=== PATIENT | female | born 1960 | race Caucasian/White ===

== ENCOUNTER 2016-10-15 10:23 | Emergency (ER) | payer MEDICAID ==
[2016-10-15] MEDS ORDERED: MORPHINE 2 MG/ML SYRINGE IVP STA (11:12)
[2016-10-15] MEDS ORDERED: ONDANSETRON 4 MG/2 ML VIAL IVP STA (11:12)
[2016-10-15] MEDS ORDERED: SODIUM CHLORIDE 0.9% 1,000 ML IV ONE (11:12)
[2016-10-15] MEDS ORDERED: MORPHINE 2 MG/ML SYRINGE ONE (11:27)
[2016-10-15] MEDS ORDERED: ONDANSETRON 4 MG/2 ML VIAL ONE (11:27)
[2016-10-15] MEDS ORDERED: IOPAMIDOL-300 100 ML VIAL IVP ONE (12:00)
== END 2016-10-15 13:38 | disposition home or self-care (01) ==
DX: R10.84 Generalized abdominal pain (principal); K57.30 Diverticulosis of large intestine without perforation or abscess without bleeding; J44.9 Chronic obstructive pulmonary disease, unspecified; Z90.2 Acquired absence of lung [part of]; Z99.81 Dependence on supplemental oxygen; F17.200 Nicotine dependence, unspecified, uncomplicated
CPT/HCPCS: 36415; 74177; 80053; 81003; 83690; 85025; 96361; 96374; 96375; 99283; 99284; Q9967

== ENCOUNTER 2016-10-19 10:32 | Outpatient (CLI) | payer MEDICAID | END 2016-10-19 10:33 | disposition home or self-care (01) | DX: R07.89 Other chest pain (principal); R10.84 Generalized abdominal pain ==

== ENCOUNTER 2016-11-19 10:35 | Outpatient (CLI) | payer MEDICAID | END 2016-11-19 10:36 | disposition home or self-care (01) | DX: N64.4 Mastodynia (principal); Z80.3 Family history of malignant neoplasm of breast ==

== ENCOUNTER 2017-02-08 10:32 | Outpatient (CLI) | payer MEDICAID, MEDICARE ==
[2017-02-08 17:52] LABS: BASOPHILS # (AUTO) 0.1 10^3/uL (0.0-0.1); BASOPHILS % (AUTO) 0.7 %; EOSINOPHILS # (AUTO) 0.1 10^3/uL (0.0-0.7); EOSINOPHILS % (AUTO) 1.1 %; HCT - HEMATOCRIT 44.4 % (37.0-47.0); HGB - HEMOGLOBIN 14.9 g/dL (12.0-16.0); LYMPHOCYTES # (AUTO) 2.7 10^3/uL (1.5-3.5); MEAN CORPUSCULAR HEMOGLOBIN 33.8 pg (27.0-31.0); MEAN CORPUSCULAR HGB CONC 33.5 g/dL (32.0-36.0); MEAN CORPUSCULAR VOLUME 100.8 fL (81.0-99.0); MEAN PLATELET VOLUME 7.6 fL (7.9-10.8); MONOCYTES # (AUTO) 0.5 10^3/uL (0.0-1.0); MONOCYTES % (AUTO) 6.1 %; NEUTROPHILS # (AUTO) 5.6 10^3/uL (1.5-6.6); NEUTROPHILS % (AUTO) 62.1 %; NUCLEATED RED BLOOD CELLS AUTO 0.1 /100WBC; RED CELL DISTRIBUTION WIDTH 15.8 % (12.0-15.0)
[2017-02-08 18:08] LABS: ALBUMIN/GLOBULIN RATIO 1.7 (1.0-2.2); BILIRUBIN,TOTAL 0.4 mg/dL (0.2-1.0); CALCIUM 9.4 mg/dL (8.5-10.3); CREATININE 0.6 mg/dL (0.4-1.0); POTASSIUM 4.1 mmol/L (3.5-5.0); TOTAL PROTEIN 6.9 g/dL (6.7-8.2)
== END 2017-02-08 10:33 | disposition home or self-care (01) ==
LOC: LAB.N 10:32
PROVIDERS: ATTEND Nurse Practitioner Family
DX: Z85.118 Personal history of other malignant neoplasm of bronchus and lung (principal)
CPT/HCPCS: 36415; 80053; 83880; 84443; 85025; 85379

== ENCOUNTER 2017-07-25 10:45 | Outpatient (CLI) | payer MEDICARE, MEDICAID ==
--- NOTE | 2017-07-25 17:45 | XRAY Report ---
FRONTAL CHEST WITH LEFT RIBS: 07/25/2017 CLINICAL INDICATION: Left rib pain. Frontal view of the chest and oblique views of the left ribs were obtained, with markers at the site of maximal tenderness. The cardiac silhouette is within normal limits. The lungs are clear. No effusion or pneumothorax is present. No displaced rib fracture is identified. IMPRESSION: NORMAL CHEST AND LEFT RIBS. NO EVIDENCE OF DISPLACED RIB FRACTURE. JOB #: [id number] EXT JOB #:[id number]
== END 2017-07-25 10:46 | disposition home or self-care (01) ==
LOC: DI.S 10:45
PROVIDERS: ATTEND Nurse Practitioner Family
DX: R07.81 Pleurodynia (principal)

== ENCOUNTER 2017-11-06 14:37 | Outpatient (CLI) | payer MEDICARE, MEDICAID ==
--- NOTE | 2017-11-06 17:08 | XRAY Report ---
RIGHT KNEE: 11/06/2017 No comparison. INDICATION: Right knee pain. TECHNIQUE: Four views. FINDINGS: There is a tiny enthesophyte of the superior patella. No effusion. Normal alignment. No evidence of acute fracture. No degenerative changes otherwise. IMPRESSION: MINIMAL DEGENERATIVE CHANGE OF THE PATELLA. OTHERWISE, NEGATIVE. TD: 11/06/2017 17:07 [facility]
== END 2017-11-06 14:38 | disposition home or self-care (01) ==
LOC: DI.S 14:37
PROVIDERS: ATTEND Nurse Practitioner Family
DX: M17.11 Unilateral primary osteoarthritis, right knee (principal)

== ENCOUNTER 2017-12-11 10:53 | Outpatient (CLI) | payer MEDICARE, MEDICAID | END 2017-12-11 10:54 | disposition home or self-care (01) | LOC: DI.S 10:53 | PROVIDERS: ATTEND Nurse Practitioner Family | DX: Z53.9 Procedure and treatment not carried out, unspecified reason (principal) ==

== ENCOUNTER 2017-12-12 10:02 | Outpatient (CLI) | payer MEDICARE, MEDICAID ==
[2017-12-12 18:06] LABS: BASOPHILS % (AUTO) 0.7 %; EOSINOPHILS % (AUTO) 0.6 %; HGB - HEMOGLOBIN 13.9 g/dL (12.0-16.0); LYMPHOCYTES # (AUTO) 2.1 10^3/uL (1.5-3.5); LYMPHOCYTES % (AUTO) 33.9 %; MEAN PLATELET VOLUME 7.6 fL (7.9-10.8); MONOCYTES # (AUTO) 0.4 10^3/uL (0.0-1.0); MONOCYTES % (AUTO) 6.3 %; NEUTROPHILS # (AUTO) 3.6 10^3/uL (1.5-6.6); NEUTROPHILS % (AUTO) 58.5 %; PLT - PLATELET COUNT 220 10^3/uL (130-450); RED BLOOD COUNT 4.21 10^6/uL (4.20-5.40); RED CELL DISTRIBUTION WIDTH 14.5 % (12.0-15.0); WHITE BLOOD COUNT 6.1 x10^3/uL (4.8-10.8)
[2017-12-12 18:12] LABS: ALBUMIN 4.2 g/dL (3.2-5.5); ALBUMIN/GLOBULIN RATIO 1.6 (1.0-2.2); ALKALINE PHOSPHATASE 56 IU/L (42-121); ALT ALANINE AMINOTRANSFERASE 17 IU/L (10-60); AST ASPARTATE AMINOTRANSFERASE 15 IU/L (10-42); BILIRUBIN,TOTAL 0.5 mg/dL (0.2-1.0); BUN - BLOOD UREA NITROGEN 13 mg/dL (6-20); CARBON DIOXIDE - CO2 26 mmol/L (21-32); CHLORIDE 103 mmol/L (101-111); CHOLESTEROL 214 mg/dL; CREATININE 0.6 mg/dL (0.4-1.0); GFR - MDRD 103 (>89); GLUCOSE 111 mg/dL (70-100); HDL CHOLESTEROL 50 mg/dL; LDL CHOLESTEROL,CALCULATED 139 mg/dL; SODIUM 137 mmol/L (135-145); TOTAL PROTEIN 6.9 g/dL (6.7-8.2); VLDL CHOLESTEROL 25 mg/dL
[2017-12-12 18:13] LABS: CHOL/HDL RATIO 4.3 (<4.4); LDL/HDL RATIO 2.8 (<4.4)
== END 2017-12-12 10:03 | disposition home or self-care (01) ==
LOC: LAB.F 10:02
PROVIDERS: ATTEND Nurse Practitioner Family
DX: Z13.6 Encounter for screening for cardiovascular disorders (principal); Z13.29 Encounter for screening for other suspected endocrine disorder; Z85.118 Personal history of other malignant neoplasm of bronchus and lung
CPT/HCPCS: 36415; 80053; 80061; 83721; 84443; 85025

== ENCOUNTER 2017-12-16 14:23 | Outpatient (CLI) | payer MEDICARE, MEDICAID ==
[2017-12-16 19:53] LABS: HB2 TOTAL 14.3 g/dL; HEMOGLOBIN A1C 0.57 g/dL; HEMOGLOBIN A1C % 5.8 % (4.6-6.2)
== END 2017-12-16 14:24 | disposition home or self-care (01) ==
LOC: LAB.F 14:23
PROVIDERS: ATTEND Nurse Practitioner Family
DX: R73.01 Impaired fasting glucose (principal)
CPT/HCPCS: 36415; 83036

== ENCOUNTER 2018-02-12 09:49 | Outpatient (CLI) | payer MEDICARE, MEDICAID ==
--- NOTE | 2018-02-12 10:50 | Mammography Report ---
Procedure Date: 02/12/2018 Accession Number: [id number] / [id number] Procedure: RAE - Diagnostic Dig Bilat CPT Code: FULL RESULT: EXAM: Diagnostic Dig Bilat DATE: 02/12/2018 10:38 AM CLINICAL HISTORY: Diffuse right breast pain TECHNIQUE: Bilateral digital CC, MLO, and true lateral projections. COMPARISON: 11/19/2016 FINDINGS: There are scattered fibroglandular densities. No dominant mass, architectural distortion, suspicious microcalcifications, skin thickening or other abnormality. No interval change compared to the prior study. IMPRESSION: Negative examination. RECOMMENDATION: Suggest return to routine screening in 12 months. BIRADS CATEGORY 1: Negative. STANDARD QUALIFYING STATEMENTS: 1. This examination was reviewed with the aid of Computer-Aided Detection (CAD). 2. A negative or benign imaging report should not delay biopsy if clinically suspicious findings are present. Consider surgical consultation if warrented. More than 5% of cancers are not identified by imaging. 3. Dense breasts may obscure an underlying neoplasm.
== END 2018-02-12 09:50 | disposition home or self-care (01) ==
LOC: DI 09:49
PROVIDERS: ATTEND Nurse Practitioner Family
DX: N64.4 Mastodynia (principal)
CPT/HCPCS: 77066

== ENCOUNTER 2018-04-01 09:45 | Outpatient (CLI) | payer MEDICARE, MEDICAID | END 2018-04-01 09:46 | disposition home or self-care (01) | LOC: RT.S 09:45 | PROVIDERS: ATTEND Nurse Practitioner Family | DX: R07.89 Other chest pain (principal) | CPT/HCPCS: 93005 ==

== ENCOUNTER 2018-04-17 08:38 | Outpatient (CLI) | payer MEDICARE, MEDICAID ==
[2018-04-17] MEDS ORDERED: REGADENOSON 0.4 MG/5 ML SYRINGE IVP ONE (10:12)
[2018-04-17] MEDS ORDERED: AMINOPHYLLINE 250 MG/10 ML VIAL IV ONE (10:50)
[2018-04-17] MEDS: REGADENOSON 0.4 MG/5 ML SYRINGE IVP ONE ×2 (10:55→13:34)
--- NOTE | 2018-04-17 18:48 | Nuclear Medicine Report ---
Procedure Date: 04/17/2018 Accession Number: [id number] / [id number] Procedure: NM - Myocardial Perfusion STR/RST CPT Code: FULL RESULT: EXAM: NUCLEAR MEDICINE MYOCARDIAL PERFUSION STRESS AND REST EXAM EXAM DATE: 04/17/2018 02:06 PM. CLINICAL HISTORY: CHEST PAIN, COPD. COMPARISON: None. TECHNIQUE: Patient given 10 mCi technetium 99m sestamibi IV for the rest portion of the study. Non-gated cardiac SPECT scintigraphy performed with multiplanar reformats. After appropriate delay, exercise attempted on a treadmill protocol with 2 minutes exercise time, but did not achieve target heart rate. Next, patient given 0.4 mg lexiscan for pharmacologic stress. After this, patient given 43.7 mCi technetium 99m sestamibi IV. Cardiac gated SPECT scintigraphy performed with wall motion analysis, left ventricular ejection fraction estimation, and multiplanar reformats. FINDINGS: There is a moderate-sized focus of moderately decreased activity in the anterior apical wall from apex to mid ventricle stress with partial normalization on rest. Wall motion appears uniform. Left ventricular ejection fraction estimated at 82%. IMPRESSION: 1. 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 2. Left ventricular ejection fraction estimated at 82%. RADIA
--- NOTE | 2018-04-18 12:23 | CARDIAC PROCEDURE NOTE ---
DATE OF SERVICE: 04/17/2018 Physician: Aleah Hess MD INDICATIONS FOR TEST: Atypical chest pain, COPD. CARDIAC RISK FACTORS: Tobacco smoker, family history with father with an LA at the age of 56. PROCEDURE: The patient underwent a pharmaceutical stress test using Lexiscan, after signing informed consent. The patient had wheezing at baseline, no shortness of breath or chest pain. The patient developed brief shortness of breath with Lexiscan, had no chest pain, had worsening of her wheezing. She was given aminophylline 50 mg IV for reversal of symptoms. Resting EKG: Normal sinus rhythm, borderline first-degree block, left atrial enlargement, LAFB, poor R-wave progression. Peak EKG: No new ST or T-wave changes. Resting heart rate 100, peak heart rate 115. Resting blood pressure 116/86, peak blood pressure 122/78. IMPRESSION 1. No ischemic changes by EKG criteria, but this was a pharmaceutical stress test. 2. Abnormal resting EKG. 3. Shortness of breath and wheezing, aminophylline required for reversal. 4. Nuclear images reported separately. cc: ERI Kothari TD: 04/18/2018 11:57 MTDJason
== END 2018-04-17 08:39 | disposition home or self-care (01) ==
LOC: DI 08:38
PROVIDERS: ATTEND Nurse Practitioner Family
DX: I21.09 ST elevation (STEMI) myocardial infarction involving other coronary artery of anterior wall (principal); J44.9 Chronic obstructive pulmonary disease, unspecified
CPT/HCPCS: 78452; 93017; A9500; J2785

== ENCOUNTER 2018-05-08 15:22 | Emergency (ER) | payer MEDICARE, MEDICAID ==
[2018-05-08 17:14] LABS: BASOPHILS % (AUTO) 0.4 %; EOSINOPHILS % (AUTO) 0.6 %; HGB - HEMOGLOBIN 15.8 g/dL (12.0-16.0); LYMPHOCYTES # (AUTO) 2.8 10^3/uL (1.5-3.5); LYMPHOCYTES % (AUTO) 36.7 %; MEAN CORPUSCULAR HEMOGLOBIN 34.6 pg (27.0-31.0); MEAN CORPUSCULAR HGB CONC 35.1 g/dL (32.0-36.0); MEAN CORPUSCULAR VOLUME 98.4 fL (81.0-99.0); MEAN PLATELET VOLUME 7.3 fL (7.9-10.8); MONOCYTES # (AUTO) 0.5 10^3/uL (0.0-1.0); MONOCYTES % (AUTO) 7.1 %; NEUTROPHILS # (AUTO) 4.2 10^3/uL (1.5-6.6); NEUTROPHILS % (AUTO) 55.2 %; PLT - PLATELET COUNT 258 10^3/uL (130-450); RED BLOOD COUNT 4.57 10^6/uL (4.20-5.40); RED CELL DISTRIBUTION WIDTH 13.8 % (12.0-15.0); WHITE BLOOD COUNT 7.5 x10^3/uL (4.8-10.8)
[2018-05-08 17:25] LABS: ALBUMIN 4.5 g/dL (3.2-5.5); ALBUMIN/GLOBULIN RATIO 1.6 (1.0-2.2); BILIRUBIN,TOTAL 0.6 mg/dL (0.2-1.0); CALCIUM 9.1 mg/dL (8.5-10.3); CREATININE 0.5 mg/dL (0.4-1.0); TOTAL PROTEIN 7.3 g/dL (6.7-8.2)
--- NOTE | 2018-05-08 17:59 | XRAY Report ---
Reason: cough chest pain Procedure Date: 05/08/2018 Accession Number: [id number] / [id number] Procedure: XR - Chest 2 View X-Ray CPT Code: 78073 FULL RESULT: EXAM: CHEST RADIOGRAPHY EXAM DATE: 05/08/2018 05:16 PM. CLINICAL HISTORY: Cough, chest and right arm pain which began yesterday. COMPARISON: Ribs with PA chest left 07/25/2017 10:58 AM. TECHNIQUE: 2 views. FINDINGS: Lungs/Pleura: No focal opacities evident. No pleural effusion. No pneumothorax. Normal volumes. Mediastinum: Heart and mediastinal contours are unremarkable. Other: None. IMPRESSION: Normal 2-view chest radiography. RADIA
[2018-05-08] MEDS ORDERED: predniSONE 20 MG TABLET PO STA (18:44)
[2018-05-08] MEDS ORDERED: ASPIRIN CHEW 81 MG TABLET PO STA (18:44)
--- NOTE | 2018-05-08 18:47 | ED Physician Documentation ---
PD HPI CHEST PAIN - Stated complaint Stated Complaint: SOA/CHEST PRESSURE/R ARM-NK PX - Chief complaint Chief Complaint: Resp - History obtained from History obtained from: Patient - History of Present Illness Timing - onset: Other (This is a 58-year-old woman with history of COPD. She had a stress test a few weeks ago which had shown prior ischemic infarct. But there was nothing reversible on the stress test. For the last 2 days she has had right shoulder pain that is worse with motion and constant. It is not worse with exertion. She was worried that this might be an anginal equivalent. She also complains of right hip and left ankle pain. She is more short of breath with than normal with a wheezy cough. 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 : None HEENT: None Psych: None Musculoskeletal: None Derm: None - Past Surgical History Past Surgical History: Yes General: Cholecystectomy Cardiovascular: Lobectomy - Present Medications Home Medications: Ambulatory Orders Medication Instructions Recorded Confirmed Ipratropium/Albuterol Inhaler 1 puffs INH QID PRN 07/16/13 03/18/18 [Combivent Inhaler] RX: Albuterol 2.5 mg INH Q4H PRN 01/11/15 03/18/18 RX: Omeprazole 20 mg PO TID 09/11/16 03/18/18 RX: Sucralfate 1 gm PO ACHS #120 tablet 10/15/16 03/18/18 RX: Cyclobenzaprine [Flexeril] 10 mg PO TID PRN 09/10/17 03/18/18 RX: Gabapentin 300 mg PO DAILY PM 09/10/17 03/18/18 raNITIdine [Zantac] 150 mg PO DAILY 09/10/17 03/18/18 Varenicline Tartrate [Chantix] 0.5 mg PO 03/18/18 RX: predniSONE [Prednisone] 60 mg PO DAILY 5 Days #15 tablet 05/08/18 - Allergies Allergies/Adverse Reactions: Allergies Allergy/AdvReac Type Severity Reaction Status Date / Time No Known Drug Allergies Allergy Verified 05/08/18 15:39 - Social History Does the pt smoke?: Yes Smoking Status: Current every day smoker Does the pt drink ETOH?: No Does the pt have substance abuse?: Yes - Immunizations Immunizations are current?: Yes - POLST Patient has POLST: No PD ED PE NORMAL - Vitals Vital signs reviewed: Yes - General General: Alert and oriented X 3, No acute distress - HEENT HEENT: PERRL, EOMI - Neck Neck: Supple, no meningeal sign, No bony TTP - Cardiac Cardiac: RRR, No murmur - Respiratory Respiratory: Other (Wheezy and rhonchorous throughout) - Abdomen Abdomen: Soft, Non tender - Back Back: No CVA TTP, No spinal TTP - Extremities Extremities: No edema, No calf tenderness / cord - Neuro Neuro: Alert and oriented X 3, Normal speech Results - Vitals Vitals: Vital Signs - 24 hr 05/08/18 05/08/18 05/08/18 15:35 18:32 19:32 Temperature 36.5 C 36.8 C 36.8 C Heart Rate 102 H 98 108 H Respiratory 22 16 16 Rate Blood Pressure 128/78 147/94 H 147/81 H O2 Saturation 96 99 95 Oxygen O2 Source Room air - EKG (time done) 1532 Rate: Rate (enter#) (103) Rhythm: NSR [place]: Normal Intervals: Normal IA QRS: Normal Ischemia: Q waves (inferior) Computer interpretation: Agree with computer - Labs Labs: Laboratory Tests 05/08/18 05/08/18 05/08/18 17:05 17:05 17:05 WBC 7.5 RBC 4.57 Hgb 15.8 Hct 45.0 MCV 98.4 MCH 34.6 H MCHC 35.1 RDW 13.8 Plt Count 258 MPV 7.3 L Neut # (Auto) 4.2 Lymph # (Auto) 2.8 [place] # (Auto) 0.5 Eos # (Auto) 0.0 Baso # (Auto) 0.0 Absolute Nucleated RBC 0.00 Nucleated RBC % 0.1 Sodium 136 Potassium 3.7 Chloride 102 Carbon Dioxide 24 Anion Gap 10.0 BUN 9 Creatinine 0.5 Estimated GFR (MDRD) 126 Glucose 100 Calcium 9.1 Total Bilirubin 0.6 AST 24 ALT 27 Alkaline Phosphatase 66 Troponin I < 0.04 Total Protein 7.3 Albumin 4.5 Globulin 2.8 Albumin/Globulin Ratio 1.6 Lipase 24 PD MEDICAL DECISION MAKING - ED course ED course: She presents with a recent "positive" stress test but it showed a previous infarct without reversible areas of ischemia. Her 2 days of constant very atypical pain rule her out with a single troponin. She otherwise seems to be dealing with an increase in COPD symptoms which are treated with prednisone and she is advised to quit smoking. - Sepsis Event Vital Signs: Vital Signs - 24 hr 05/08/18 05/08/18 05/08/18 15:35 18:32 19:32 Temperature 36.5 C 36.8 C 36.8 C Heart Rate 102 H 98 108 H Respiratory 22 16 16 Rate Blood Pressure 128/78 147/94 H 147/81 H O2 Saturation 96 99 95 Oxygen O2 Source Room air Departure - Departure Disposition: 01 Home, Self Care Clinical Impression: Right shoulder pain, COPD exacerbation Condition: Good Record reviewed to determine appropriate education?: Yes Instructions: ED COPD Flare, ED Chest Pain Atypical Unkn Cause, ED Smoking Cessation Prescriptions: RX: predniSONE [Prednisone] 60 mg PO DAILY 5 Days #15 tablet Comments: Your diagnostics today suggest that the constant pain you had over the last 2 days or not your heart. That said you should be taking aspirin, a baby aspirin every day and follow-up with a scrap stripper hand for evaluation after the positive stress test as scheduled. Return for new or worsening symptoms. Discharge Date/Time: 05/08/18 19:38
[2018-05-08 19:32] VITALS: BP 147/81
== END 2018-05-08 19:38 | disposition home or self-care (01) ==
LOC: ED 15:22
DX: J44.1 Chronic obstructive pulmonary disease with (acute) exacerbation (principal); M25.511 Pain in right shoulder; F17.200 Nicotine dependence, unspecified, uncomplicated
CPT/HCPCS: 36415; 71046; 80053; 83690; 84484; 85025; 93005; 99283; A9270; J7512

== ENCOUNTER 2018-11-07 14:30 | Emergency (ER) | payer MEDICARE, MEDICAID ==
--- NOTE | 2018-11-07 15:36 | XRAY Report ---
Reason: SOA Procedure Date: 11/07/2018 Accession Number: [id number] / [id number] Procedure: XR - Chest 2 View X-Ray CPT Code: 78503 FULL RESULT: EXAM: CHEST RADIOGRAPHY EXAM DATE: 11/07/2018 03:06 PM. CLINICAL HISTORY: SOA. COMPARISON: CHEST 2 VIEW 05/08/2018 5:28 PM. TECHNIQUE: 2 views. FINDINGS: Lungs/Pleura: No localized infiltrate, consolidation, effusion, or pneumothorax. Mediastinum: Heart and mediastinal contours are unremarkable. Upper lobe vessels not distended. Other: Degenerative changes. IMPRESSION: No acute disease. RADIA
--- NOTE | 2018-11-07 16:59 | ED Physician Documentation ---
PD HPI URI - Stated complaint Stated Complaint: CONGESTION/WHEEZING/LOW O2/RAPID HR - Chief complaint Chief Complaint: Resp - History obtained from History obtained from: Patient - History of Present Illness Timing - onset: How many days ago (has had few days of cough and fevers, with worsening wheezing. History of COPD. Has home oxygen at night and home nebulizer.) Timing duration: Days (few) Timing details: Gradual onset, Still present Associated symptoms: Fever, Sore throat, Productive cough, Dyspnea. No: Hemoptysis, Chest pain Contributing factors: COPD / asthma. 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 : None HEENT: None Psych: None Musculoskeletal: None Derm: None - Past Surgical History Past Surgical History: Yes General: Cholecystectomy Cardiovascular: Lobectomy - Present Medications Home Medications: Ambulatory Orders Medication Instructions Recorded Confirmed Ipratropium/Albuterol Inhaler 1 puffs INH QID PRN 07/16/13 03/18/18 [Combivent Inhaler] Albuterol 2.5 mg INH Q4H PRN 01/11/15 03/18/18 Omeprazole 20 mg PO TID 09/11/16 03/18/18 Sucralfate 1 gm PO ACHS #120 tablet 10/15/16 03/18/18 Cyclobenzaprine [Flexeril] 10 mg PO TID PRN 09/10/17 03/18/18 Gabapentin 300 mg PO DAILY PM 09/10/17 03/18/18 raNITIdine [Zantac] 150 mg PO DAILY 09/10/17 03/18/18 Varenicline Tartrate [Chantix] 0.5 mg PO 03/18/18 predniSONE [Prednisone] 60 mg PO DAILY 5 Days #15 tablet 05/08/18 Benzonatate [Tessalon Perle] 100 - 200 mg PO TID PRN #30 capsule 11/07/18 Cyclobenzaprine [Flexeril] 10 mg PO TID PRN #20 tablet 11/07/18 Dexamethasone [Decadron] 4 mg PO DAILY #7 tablet 11/07/18 Doxycycline Hyclate 100 mg PO BID #20 capsule 11/07/18 Ipratropium [Atrovent] 0.5 mg INH Q6H #30 neb 11/07/18 - Allergies Allergies/Adverse Reactions: Allergies Allergy/AdvReac Type Severity Reaction Status Date / Time No Known Drug Allergies Allergy Verified 11/07/18 14:49 - Social History Does the pt smoke?: Yes Smoking Status: Current every day smoker Does the pt drink ETOH?: No Does the pt have substance abuse?: Yes - Immunizations Immunizations are current?: Yes - POLST Patient has POLST: No PD ED PE NORMAL - Vitals Vital signs reviewed: Yes - General General: Alert and oriented X 3, No acute distress, Well developed/nourished - HEENT HEENT: Ears normal, Pharynx benign - Neck Neck: Supple, no meningeal sign, No adenopathy, No JVD - Cardiac Cardiac: No murmur. No: RRR (regular but tachycardic) - Respiratory Respiratory: No: Clear bilaterally (no coarse sounds; has diffuse wheezing with some prlonged exp phase. Sats are okay. Able to talk sentences. ) - Abdomen Abdomen: Soft, Non tender Results - Vitals Vitals: Vital Signs - 24 hr 11/07/18 11/07/18 16:52 18:10 Temperature 36.0 C L Heart Rate 98 106 H Respiratory 20 20 Rate Blood Pressure 121/90 H 144/81 H O2 Saturation 95 94 Oxygen O2 Source Room air - Rads (name of study) chest xray Radiology: Prelim report reviewed, EMP read contemporaneously (no infiltrates. ) PD MEDICAL DECISION MAKING - ED course Complexity details: re-evaluated patient (feeling improved with duoneb. Will give steroids and abx, in lieu of her COPD where abx can be helpful even if think URI. ), considered differential, d/w patient Departure - Departure Disposition: 01 Home, Self Care Clinical Impression: Acute exacerbation of COPD with asthma Upper respiratory infection Qualifiers: URI type: unspecified URI Qualified Code(s): J06.9 - Acute upper respiratory infection, unspecified Record reviewed to determine appropriate education?: Yes Instructions: ED Bronchitis Asthmatic, ED COPD Flare Follow-Up: Pauly Menjivar ARNP [Primary Care Provider] - Prescriptions: Benzonatate [Tessalon Perle] 100 - 200 mg PO TID PRN #30 capsule PRN Reason: Cough Cyclobenzaprine [Flexeril] 10 mg PO TID PRN #20 tablet PRN Reason: Spasms Dexamethasone [Decadron] 4 mg PO DAILY #7 tablet Doxycycline Hyclate 100 mg PO BID #20 capsule Ipratropium [Atrovent] 0.5 mg INH Q6H #30 neb Comments: Use your albuterol inhaler or nebulizer at home 4 times a day regularly. You can add ipratropium to your nebulizer 4 times a day for the next week or so as well to also help with your wheezing. Decadron steroid daily first a week for inflammation of the airways. Tessalon if needed for cough. Continue your Flexeril muscle relaxant for spasms. The basic exacerbation is likely from a viral illness though there is often improving with an antibiotic in the setting of COPD as well. Recheck if not improving over the next few days. Return if worsening. Discharge Date/Time: 11/07/18 18:12
[2018-11-07] MEDS ORDERED: CYCLOBENZAPRINE 10 MG TABLET PO STA (17:10)
[2018-11-07] MEDS ORDERED: BENZONATATE 100 MG CAPSULE PO STA (17:10)
[2018-11-07] MEDS ORDERED: DOXYCYCLINE 100 MG TABLET PO STA (17:10)
[2018-11-07] MEDS ORDERED: IPRATROPIUM/ALBUTEROL 3 ML NEB INH STA (17:10)
[2018-11-07] MEDS ORDERED: DEXAMETHASONE 10 MG/ML VIAL PO STA (17:10)
[2018-11-07 18:11] VITALS: BP 144/81
== END 2018-11-07 18:12 | disposition home or self-care (01) ==
LOC: ED 14:30
DX: J44.1 Chronic obstructive pulmonary disease with (acute) exacerbation (principal); J06.9 Acute upper respiratory infection, unspecified; Z90.2 Acquired absence of lung [part of]; F17.200 Nicotine dependence, unspecified, uncomplicated
CPT/HCPCS: 71046; 94640; 99282; 99283; A9270

== ENCOUNTER 2019-01-11 08:29 | Outpatient (CLI) | payer MEDICARE, MEDICAID ==
--- NOTE | 2019-01-11 12:22 | Ultrasound Report ---
Reason: LOWER EXTREMITY EDEMA, LEFT Procedure Date: 01/11/2019 Accession Number: [id number] / [id number] Procedure: US - Duplex Lwr Ext Arterial Bilat CPT Code: FULL RESULT: EXAM: Bilateral Lower Extremity Arterial Doppler Ultrasound EXAM DATE: 01/11/2019 09:23 AM. CLINICAL HISTORY: Left lower extremity edema. History of hypertension, smoking, and hyperlipidemia. COMPARISON: None. TECHNIQUE: Real-time sonographic vascular imaging was performed by the manufacturing clerk, utilizing color-flow, Doppler flow, and spectral analysis. Multiple technology sales representative static images were saved for review. FINDINGS: Right Leg: FINANCE ANALYST: PSV 77 cm/sec. Triphasic waveform. PSFA: PSV 103 cm/sec. Triphasic waveform. MSFA: PSV 74 cm/sec. Triphasic waveform. DSFA: PSV 61 cm/sec. Triphasic waveform. PFA: PSV 60 cm/sec. Triphasic waveform. POP: PSV 48 cm/sec. Triphasic waveform. DOROTHEA: PSV 43 cm/sec. Biphasic waveform. BLEACH TESTER: PSV 31 cm/sec. Biphasic waveform. PER: PSV 39 cm/sec. Biphasic waveform. DPA: PSV 38 cm/sec. Triphasic waveform. Left Leg: FINANCE ANALYST: PSV 82 cm/sec. Triphasic waveform. PSFA: PSV 85 cm/sec. Triphasic waveform. MSFA: PSV 80 cm/sec. Triphasic waveform. DSFA: PSV 51 cm/sec. Triphasic waveform. PFA: PSV 51 cm/sec. Biphasic waveform. POP: PSV 36 cm/sec. Triphasic waveform. DOROTHEA: PSV 35 cm/sec. Biphasic waveform. BLEACH TESTER: PSV 31 cm/sec. Triphasic waveform. PER: PSV 32 cm/sec. Biphasic waveform. DPA: PSV 28 cm/sec. Triphasic waveform. IMPRESSION: No Doppler evidence of significant (greater than 50%) arterial stenosis in either lower extremity. RADIA
== END 2019-01-11 08:30 | disposition home or self-care (01) ==
LOC: DI 08:29
PROVIDERS: ATTEND Registered Nurse
DX: R60.0 Localized edema (principal)
CPT/HCPCS: 93925

== ENCOUNTER 2019-07-20 07:00 | Outpatient (CLI) | payer MEDICARE, MEDICAID | END 2019-07-20 23:59 | disposition home or self-care (01) | LOC: LAB.R 07:00 | PROVIDERS: ATTEND Registered Nurse | DX: J02.9 Acute pharyngitis, unspecified (principal) | CPT/HCPCS: 87070 ==

== ENCOUNTER 2020-02-04 12:37 | Outpatient (CLI) | payer MEDICARE, MEDICAID | END 2020-02-04 12:38 | disposition critical access hospital (66) | LOC: EMS 12:37 | PROVIDERS: ATTEND Surgery | DX: R06.02 Shortness of breath (principal); R07.89 Other chest pain; R05 Cough; R11.0 Nausea; R19.7 Diarrhea, unspecified | CPT/HCPCS: A0425; A0429 ==

== ENCOUNTER 2020-02-04 13:06 | Emergency (ER) | payer MEDICARE, MEDICAID ==
[2020-02-04] MEDS ORDERED: ALBUTEROL 1 PUFF INH STA ×2 (13:21→13:54)
--- NOTE | 2020-02-04 13:26 | ED Physician Documentation ---
History of Present Illness - Stated complaint Stated Complaint: CP/POSS C+ - Chief complaint Chief Complaint: Resp - History obtained from History obtained from: Patient, EMS - History of Present Illness Timing: Prior to arrival, How many days ago (3) - Additonal information Additional information: 59-year-old female presents to the emergency department with chief complaint of 3 days left-sided chest pain and productive cough with associated chills at home. Patient reports that about 8 years ago she was diagnosed with left upper lobe lung cancer and underwent a partial lung resection. The point in her chest where the chest tubes were placed after surgery has become increasingly more tender. Patient reports a history of emphysema for which she uses oxygen mostly at night. Patient reports that her baseline sats are typically 92 to 95%. Over the last 3 days she has felt increasingly dyspneic however she has not used her home nebulizer. She is also had some associated diarrhea. She went to the [facility] today and they advised her to come to the emergency department for further evaluation. Patient states that since her diagnosis of lung cancer she has had multiple bouts of pneumonia. She is followed by the [facility] clinic now being seen about once every year.Over the last 2 to 3 months patient reports that she has been practicing social distancing. She only goes to the grocery store. Her roommate has stage IV lung cancer and she has been helping care for him at home. Patient continues to smoke tobacco.She denies any history of hypertension or diabetes. MEDS: flexeril, combivent, albuterol nebulizer, gabapentin Review of Systems Constitutional: reports: Fever, Chills, Fatigue, Sweats. denies: Myalgias Ears: denies: Loss of hearing, Ear pain Nose: denies: Rhinorrhea / runny nose, Congestion Throat: denies: Dental pain / toothache Cardiac: reports: Chest pain / pressure. denies: Palpitations, Pedal edema, Calf pain Respiratory: reports: Dyspnea, Cough, Wheezing GI: reports: Diarrhea. denies: Abdominal Pain, Abdominal Swelling, Nausea, Vomiting, Constipation : denies: Dysuria, Frequency Skin: denies: Rash, Lesions Musculoskeletal: reports: Back pain (chronic). denies: Neck pain, Joint pain, Extremity swelling Neurologic: denies: Generalized weakness, Focal weakness, Syncope, Confused, Altered mental status PD PAST MEDICAL HISTORY - Past Medical History Cardiovascular: None Respiratory: COPD, Pneumonia, Other Endocrine/Autoimmune: None GI: None POSITION CLASSIFIER: None : None HEENT: None Psych: None Musculoskeletal: None Derm: None - Past Surgical History Past Surgical History: Yes General: Cholecystectomy Cardiovascular: Lobectomy - Present Medications Home Medications: Ambulatory Orders Medication Instructions Recorded Confirmed Ipratropium/Albuterol Inhaler 1 puffs INH QID PRN 07/16/13 03/17/19 [Combivent Inhaler] Omeprazole 20 mg PO DAILY 09/11/16 03/17/19 Gabapentin 300 mg PO DAILY PM 09/10/17 03/17/19 Cyclobenzaprine [Flexeril] 10 mg PO TID PRN #20 tablet 11/07/18 03/17/19 Ipratropium [Atrovent] 0.5 mg INH Q6H #30 neb 11/07/18 03/17/19 Albuterol Sulf [Ventolin Hfa 2 puffs Q4H 02/04/20 02/04/20 Inhaler] Aspirin 81 mg PO DAILY 02/04/20 02/04/20 Doxycycline Hyclate 100 mg PO BID #20 capsule 02/04/20 Ipratropium/Albuterol [Combivent 2 puffs Q4H 02/04/20 02/04/20 Respimat] Meloxicam 15 mg PO DAILY 02/04/20 02/04/20 Nitroglycerin 0.4 mg SL PRN 02/04/20 02/04/20 predniSONE [Prednisone] 40 mg PO DAILY #10 tablet 02/04/20 - Allergies Allergies/Adverse Reactions: Allergies Allergy/AdvReac Type Severity Reaction Status Date / Time No Known Drug Allergies Allergy Verified 02/04/20 13:20 - Social History Does the pt smoke?: Yes Smoking Status: Current every day smoker Does the pt drink ETOH?: No Does the pt have substance abuse?: Yes - Immunizations Immunizations are current?: Yes - POLST Patient has POLST: No PD ED PE EXPANDED - General General: Alert, No acute distress, Well developed/nourished - HEENT HEENT: Atraumatic, PERRL, EOMI - Neck Neck: Supple w/out meningeal sx, No tenderness - Cardiac Cardiac: Regular Rate, Radial strong equal - Respiratory Respiratory: Labored, Wheezing (generalized diffuse expiratory wheeze), Absent Breath Sounds (left upper lung) - Abdomen Abdomen: Normal Bowel sounds. No: Distended, Tender to palpation - Back Back: Other (tenderness to palpation left lateral lower rib margins at the noted scar where chest tube previously inserted) - Derm Derm: Normal color, Warm and dry. No: Jaundiced, Diaphoretic, Cyanotic, Rash - Neuro Neuro: Alert and Oriented X 3, PERRL - GCS Eye Opening: Spontaneous Motor: Obeys Commands Verbal: Oriented Total: 15 Results - Vitals Vitals: Vital Signs - 24 hr 02/04/20 02/04/20 02/04/20 13:07 13:38 13:42 Temperature 36.6 C 37.3 C Heart Rate 108 H 106 H Respiratory 17 15 Rate Blood Pressure 123/86 H O2 Saturation 96 02/04/20 13:59 Temperature Heart Rate 111 H Respiratory 20 Rate Blood Pressure O2 Saturation Oxygen O2 Source Room air - EKG (time done) 1329 Rate: Rate (enter#) (113) Rhythm: Sinus tachycardia [place]: Other Intervals: Normal IN, QRS normal QRS: Normal Ischemia: Normal ST segments Compare to prior EKG: Changed from prior EKG Computer interpretation: Agree with computer (P wave inversion V1,V2 new from 2018 EKG; possible new inferior old infarct) - Labs Labs: Laboratory Tests 02/04/20 02/04/20 02/04/20 13:20 13:20 13:20 WBC 9.2 RBC 4.47 Hgb 15.2 Hct 45.7 MCV 102.2 H MCH 34.0 H MCHC 33.3 RDW 13.2 Plt Count 212 MPV 8.9 Neut # (Auto) 5.6 Lymph # (Auto) 2.8 [place] # (Auto) 0.6 Eos # (Auto) 0.1 Baso # (Auto) 0.0 Absolute Nucleated RBC 0.00 Nucleated RBC % 0.0 Sodium 138 Potassium 4.1 Chloride 107 Carbon Dioxide 23 Anion Gap 8.0 BUN 12 Creatinine 0.6 Estimated GFR (MDRD) 102 Glucose 160 H Lactic Acid 1.2 Calcium 8.9 Total Bilirubin 0.4 AST 21 ALT 28 Alkaline Phosphatase 76 Troponin I High Sens Total Protein 7.2 Albumin 4.4 Globulin 2.8 Albumin/Globulin Ratio 1.6 Lipase 24 Urine Color Urine Clarity Urine pH Ur Specific [place] Urine Protein Urine Glucose (UA) Urine Ketones Urine Occult Blood Urine Nitrite Urine Bilirubin Urine Urobilinogen Ur Leukocyte Esterase Urine RBC Urine WBC Ur Squamous Epith Cells Urine Bacteria Ur Microscopic Review Urine Culture Comments 02/04/20 02/04/20 13:20 13:30 WBC RBC Hgb Hct MCV MCH MCHC RDW Plt Count MPV Neut # (Auto) Lymph # (Auto) [place] # (Auto) Eos # (Auto) Baso # (Auto) Absolute Nucleated RBC Nucleated RBC % Sodium Potassium Chloride Carbon Dioxide Anion Gap BUN Creatinine Estimated GFR (MDRD) Glucose Lactic Acid Calcium Total Bilirubin AST ALT Alkaline Phosphatase Troponin I High Sens 3.8 Total Protein Albumin Globulin Albumin/Globulin Ratio Lipase Urine Color DARK YELLOW Urine Clarity HAZY Urine pH 6.0 Ur Specific [place] >=1.030 H Urine Protein TRACE Urine Glucose (UA) NEGATIVE Urine Ketones NEGATIVE Urine Occult Blood NEGATIVE Urine Nitrite NEGATIVE Urine Bilirubin NEGATIVE Urine Urobilinogen 0.2 (NORMAL) Ur Leukocyte Esterase NEGATIVE Urine RBC 0-5 Urine WBC 0-3 Ur Squamous Epith Cells MOD Squamous H Urine Bacteria Few Ur Microscopic Review INDICATED Urine Culture Comments NOT INDICATED - Rads (name of study) CXR Radiology: Final report received (Finding is concerning for developing right perihilar and infrahilar infiltrate.) PD MEDICAL DECISION MAKING - ED course Complexity details: reviewed results, re-evaluated patient, considered differential, d/w patient ED course: 59-year-old female presented to the emergency department with chief complaint of left-sided chest pain and dyspnea with subjective fever and chills and newly productive cough. She has a past medical history that includes COPD for which she is on nocturnal oxygen. - COVID 19 screening is pending. - Chest x-ray reveals a subtle finding of a right perihilar and infrahilar infiltrate. Her CURB 65 risk scor eis low for 30 day mortality. - Reassuringly through the course of this ED visit she has not been hypoxic with saturations at her baseline of 92 to 95%. Her initial wheeze and dyspnea nearly fully abated following albuterol MDI. - Will plan to Discharge with doxycycline as treatment for pneumonia as well as a short burst of steroids for COPD exacerbation. - Labs reviewed in full. She has no leukocytosis. Her troponin is negative. The rest of the serum chemistry is without any worrisome findings. - Her ECG is nonischemic today. - We spent time discussing the emergent return precautions. I do not feel that further imaging or admission is warranted at this time patient feels stable and desires to return home. Departure - Departure Disposition: 01 Home, Self Care Clinical Impression: COPD with exacerbation CAP (community acquired pneumonia) Qualifiers: Laterality: right Lung location: unspecified part of lung Qualified Code(s): J18.9 - Pneumonia, unspecified organism Condition: Stable Record reviewed to determine appropriate education?: Yes Instructions: COPD Dc, ED Pneumonia Adult Follow-Up: Pauly Menjivar ARNP [Primary Care Provider] - Prescriptions: Doxycycline Hyclate 100 mg PO BID #20 capsule predniSONE [Prednisone] 40 mg PO DAILY #10 tablet Comments: Yolande I hop eyou feel better soon. It looks like you have a pneumonia developing in your right lung. I am also concerned that you are having a COPD exacerbation. Would start you on a 10-day course of antibiotics and have you take some steroids. If at any point at home you feel that your breathing is worsening your cough is not improving or your oxygen sats at home are less than 92% then please return immediately to the emergency department.
[2020-02-04 13:33] LABS: BASOPHILS % (AUTO) 0.3 %; EOSINOPHILS # (AUTO) 0.1 10^3/uL (0.0-0.7); EOSINOPHILS % (AUTO) 0.9 %; HGB - HEMOGLOBIN 15.2 g/dL (12.0-16.0); LYMPHOCYTES # (AUTO) 2.8 10^3/uL (1.5-3.5); LYMPHOCYTES % (AUTO) 30.6 %; MEAN CORPUSCULAR HGB CONC 33.3 g/dL (32.0-36.0); MEAN CORPUSCULAR VOLUME 102.2 fL (81.0-99.0); MEAN PLATELET VOLUME 8.9 fL (7.9-10.8); MONOCYTES # (AUTO) 0.6 10^3/uL (0.0-1.0); MONOCYTES % (AUTO) 6.9 %; NEUTROPHILS # (AUTO) 5.6 10^3/uL (1.5-6.6); NEUTROPHILS % (AUTO) 60.5 %; PLT - PLATELET COUNT 212 10^3/uL (130-450); RED BLOOD COUNT 4.47 10^6/uL (4.20-5.40); RED CELL DISTRIBUTION WIDTH 13.2 % (12.0-15.0); WHITE BLOOD COUNT 9.2 x10^3/uL (4.8-10.8)
[2020-02-04 13:48] LABS: ALBUMIN 4.4 g/dL (3.2-5.5); ALBUMIN/GLOBULIN RATIO 1.6 (1.0-2.2); BILIRUBIN,TOTAL 0.4 mg/dL (0.2-1.0); CALCIUM 8.9 mg/dL (8.5-10.3); CREATININE 0.6 mg/dL (0.4-1.0); TOTAL PROTEIN 7.2 g/dL (6.7-8.2)
[2020-02-04 13:49] LABS: BILIRUBIN,URINE NEGATIVE (NEGATIVE); GLUCOSE, URINE (UA) NEGATIVE (NEGATIVE); KETONES,URINE (UA) NEGATIVE (NEGATIVE); LEUKOCYTE ESTERASE, URINE NEGATIVE (NEGATIVE); NITRITE,URINE NEGATIVE (NEGATIVE); OCCULT BLOOD,URINE NEGATIVE (NEGATIVE); PROTEIN,URINE TRACE mg/dL (NEGATIVE); UROBILINOGEN,URINE 0.2 (NORMAL) E.U./dL (NORMAL)
[2020-02-04 13:51] LABS: CLARITY,URINE HAZY (CLEAR)
[2020-02-04 14:00] LABS: BACTERIA,URINE Few /HPF (None Seen); RBC,URINE 0-5 /HPF (0-5); SQUAMOUS EPITHELIAL CELL,UR MOD Squamous (<= Few)
--- NOTE | 2020-02-04 14:12 | XRAY Report ---
Reason: chest pain Procedure Date: 02/04/2020 Accession Number: [id number] / [id number] Procedure: XR - Chest 1 View X-Ray CPT Code: 70021 Final Report FULL RESULT: PROCEDURE: Chest 1 View X-Ray INDICATIONS: chest pain TECHNIQUE: One view of the chest was acquired. COMPARISON: CT of chest dated 03/16/2019 FINDINGS: Surgical changes and devices: None. Lungs and pleura: No pleural effusions or pneumothorax. Ill-defined airspace opacity in right perihilar and infrahilar region is seen concerning for developing right-sided infiltrate. Left lung is clear. Mediastinum: Mediastinal contours appear normal. Heart size is normal. Bones and chest wall: No suspicious bony lesions. Overlying soft tissues appear unremarkable. IMPRESSION: Finding is concerning for developing right perihilar and infrahilar infiltrate. Reviewed by: Jorden Mccann MD on 02/04/2020 2:11 PM PDT Approved by: Jorden Mccann MD on 02/04/2020 2:11 PM PDT Station ID: [id number]
[2020-02-04 14:45] VITALS: BP 123/84
== END 2020-02-04 15:12 | disposition home or self-care (01) ==
LOC: EDUNIT# → ED 13:06
DX: J44.1 Chronic obstructive pulmonary disease with (acute) exacerbation (principal); J18.9 Pneumonia, unspecified organism; Z20.828 Contact with and (suspected) exposure to other viral communicable diseases; R19.7 Diarrhea, unspecified; R00.0 Tachycardia, unspecified; Z85.118 Personal history of other malignant neoplasm of bronchus and lung; F17.200 Nicotine dependence, unspecified, uncomplicated
CPT/HCPCS: 36415; 71045; 80053; 81001; 83605; 83690; 84484; 85025; 93005; 94640; 94664; 99284; U0004; 81003; 81599; 87086

== ENCOUNTER 2020-08-23 10:40 | Outpatient (CLI) | payer MEDICARE, MEDICAID ==
--- NOTE | 2020-08-24 09:16 | Mammography Report ---
BILATERAL DIGITAL SCREENING MAMMOGRAM 3D/2D: 08/23/2020 CLINICAL: Routine screening. Comparison is made to exams dated: 02/12/2018 mammogram, 11/19/2016 mammogram, [facility]. There are scattered fibroglandular elements in both breasts. No significant masses, calcifications, or other findings are seen in either breast. There has been no significant interval change. IMPRESSION: NEGATIVE There is no mammographic evidence of malignancy. A 1 year screening mammogram is recommended. This exam was interpreted at Station ID: [id number]. NOTE: For mammograms, a report in lay terms will be sent to the patient. Approximately 15% of breast malignancies will not be visualized mammographically. In the management of a palpable breast mass, a negative mammogram must not discourage biopsy of a clinically suspicious lesion. Electronically Signed By: Pete Garrido M.D. ddp/penrad:08/23/2020 14:11:48 ACR BI-RADS Category 1: Negative 3341F PARENCHYMAL PATTERN: (A) - The breast(s) demonstrate(s) scattered fibroglandular densities. BI-RADS CATEGORY: (1) - 1 RECOMMENDATION: (ANNUAL) - Recommend routine annual screening mammography. [id number] 1 year screening LATERALITY: (B)
== END 2020-08-23 10:41 | disposition home or self-care (01) ==
LOC: DI 10:40
DX: Z12.31 Encounter for screening mammogram for malignant neoplasm of breast (principal)

== ENCOUNTER 2020-09-30 18:10 | Outpatient (CLI) | payer MEDICARE, MEDICAID ==
--- NOTE | 2020-09-30 11:02 | XRAY Report ---
PROCEDURE: Knee 4 View LT INDICATIONS: CHONDROMALACIA PATELLA TECHNIQUE: 4 views of the left knee(s) were acquired. COMPARISON: None. FINDINGS: Bones: No fractures or dislocations. No suspicious bony lesions. Mild tricompartmental periarticul ar osteophyte formation. Soft tissues: No joint effusion. No suspicious soft tissue calcifications. IMPRESSION: Osteoarthritis. No acute fracture. No osseous lesion. If symptoms and/or clinical suspic ion for pathology continue, further assessment with repeat plain films, or advanced imaging (e.g., CT , MRI, or bone scan) is recommended for further assessment. Reviewed by: Rebekah Armstrong MD on 09/30/2020 11:01 AM PST Approved by: Rebekah Armstrong MD on 09/30/2020 11:01 AM PST Station ID: [id number]
== END 2020-09-30 23:59 | disposition home or self-care (01) ==
LOC: DI.N 18:10
PROVIDERS: ATTEND Physician Assistant
DX: M22.40 Chondromalacia patellae, unspecified knee (principal); M17.12 Unilateral primary osteoarthritis, left knee

== ENCOUNTER 2021-02-20 11:44 | Outpatient (CLI) | payer MEDICARE, MEDICAID ==
--- NOTE | 2021-02-20 13:10 | XRAY Report ---
PROCEDURE: Chest 2 View X-Ray INDICATIONS: THORACIC PAIN TECHNIQUE: 2 view(s) of the chest. COMPARISON: None. FINDINGS: Surgical changes and devices: None. Lungs and pleura: No pleural effusions or pneumothorax. Lungs are clear. Mediastinum: Mediastinal contours are normal. Heart size is normal. Bones and chest wall: No suspicious bony abnormalities. Soft tissues appear unremarkable. IMPRESSION: Normal for age, source of current symptoms is not seen. Reviewed by: Juanjo Otto MD on 02/20/2021 1:08 PM PDT Approved by: Juanjo Otto MD on 02/20/2021 1:08 PM PDT Station ID: [id number]
--- NOTE | 2021-02-20 14:51 | XRAY Report ---
PROCEDURE: Abdomen 2 View X-Ray INDICATIONS: ABDOMINAL PAIN, LUQ TECHNIQUE: 2 views of the abdomen were acquired. COMPARISON: None. FINDINGS: Surgical changes and devices: Right upper quadrant surgical clips.. Bowel: No pneumoperitoneum. The bowel gas pattern is normal. Soft tissues: No masses; visualized solid organ contours appear normal in size. No suspicious abdom inal calcifications. Bones: No suspicious bony abnormalities. IMPRESSION: No specific evidence of bowel obstruction although continued surveillance with abdominal radiographs could be performed if the patient's symptoms do not improve. Reviewed by: Akash Blanchard MD on 02/20/2021 2:50 PM PDT Approved by: Akash Blanchard MD on 02/20/2021 2:50 PM PDT Station ID: [id number]
[2021-02-20 15:54] LABS: BASOPHILS % (AUTO) 0.5 %; EOSINOPHILS % (AUTO) 0.5 %; HCT - HEMATOCRIT 46.6 % (37.0-47.0); HGB - HEMOGLOBIN 15.3 g/dL (12.0-16.0); LYMPHOCYTES # (AUTO) 2.8 10^3/uL (1.5-3.5); LYMPHOCYTES % (AUTO) 38.1 %; MEAN CORPUSCULAR HEMOGLOBIN 33.4 pg (27.0-31.0); MEAN CORPUSCULAR HGB CONC 32.8 g/dL (32.0-36.0); MEAN CORPUSCULAR VOLUME 101.7 fL (81.0-99.0); MEAN PLATELET VOLUME 9.5 fL (7.9-10.8); MONOCYTES # (AUTO) 0.5 10^3/uL (0.0-1.0); MONOCYTES % (AUTO) 7.1 %; NEUTROPHILS # (AUTO) 3.9 10^3/uL (1.5-6.6); NEUTROPHILS % (AUTO) 53.5 %; PLT - PLATELET COUNT 276 10^3/uL (130-450); RED BLOOD COUNT 4.58 10^6/uL (4.20-5.40); RED CELL DISTRIBUTION WIDTH 13.6 % (12.0-15.0); WHITE BLOOD COUNT 7.3 x10^3/uL (4.8-10.8)
[2021-02-20 16:33] LABS: ALBUMIN 4.4 g/dL (3.2-5.5); ALBUMIN/GLOBULIN RATIO 1.5 (1.0-2.2); ALKALINE PHOSPHATASE 73 IU/L (42-121); ALT ALANINE AMINOTRANSFERASE 19 IU/L (10-60); AST ASPARTATE AMINOTRANSFERASE 15 IU/L (10-42); BILIRUBIN,TOTAL 0.6 mg/dL (0.2-1.0); BUN - BLOOD UREA NITROGEN 15 mg/dL (6-20); CALCIUM 9.1 mg/dL (8.5-10.3); CARBON DIOXIDE - CO2 21 mmol/L (21-32); CHLORIDE 100 mmol/L (101-111); CHOL/HDL RATIO 5.1 (<4.4); CHOLESTEROL 220 mg/dL; CREATININE 0.6 mg/dL (0.4-1.0); GFR - MDRD 102 (>89); GLUCOSE 180 mg/dL (70-100); HDL CHOLESTEROL 43 mg/dL; LDL CHOLESTEROL,CALCULATED 121 mg/dL; LDL/HDL RATIO 2.8 (<4.4); POTASSIUM 3.4 mmol/L (3.5-5.0); SODIUM 135 mmol/L (135-145); TOTAL PROTEIN 7.4 g/dL (6.7-8.2); TRIGLYCERIDES 281 mg/dL; VLDL CHOLESTEROL 56 mg/dL
[2021-02-20 16:49] LABS: CRP - C-REACTIVE PROTEIN < 1.0 mg/dL (0-1.0)
== END 2021-02-20 11:45 | disposition home or self-care (01) ==
LOC: DI.S 11:44
PROVIDERS: ATTEND Registered Nurse
DX: R10.12 Left upper quadrant pain (principal); M54.6 Pain in thoracic spine; K22.70 Barrett's esophagus without dysplasia; I25.9 Chronic ischemic heart disease, unspecified; J44.9 Chronic obstructive pulmonary disease, unspecified; F17.210 Nicotine dependence, cigarettes, uncomplicated
CPT/HCPCS: 36415; 80053; 80061; 83721; 84443; 85025; 86140

== ENCOUNTER 2021-06-30 07:00 | Outpatient (CLI) | payer MEDICARE, MEDICAID ==
--- NOTE | 2021-06-30 15:53 | XRAY Report ---
PROCEDURE: Chest 2 View X-Ray INDICATIONS: COPD, ACUTE EXACERBATION TECHNIQUE: 2 view(s) of the chest. COMPARISON: February 20, 2021 FINDINGS: SUPPORT DEVICES: None. LUNGS/PLEURA: No focal consolidation, pleural effusion or space-occupying pneumothorax. MEDIASTINUM: The cardiomediastinal silhouette is within normal limits. BONES/SOFT TISSUES: No acute abnormality. IMPRESSION: 1.No acute cardiopulmonary abnormality. Reviewed by: Tereso Gomez MD on 06/30/2021 3:51 PM PDT Approved by: Tereso Gomez MD on 06/30/2021 3:51 PM PDT Station ID: [id number]
== END 2021-06-30 23:59 | disposition home or self-care (01) ==
LOC: DI.S 07:00
PROVIDERS: ATTEND Emergency Medicine
DX: J44.1 Chronic obstructive pulmonary disease with (acute) exacerbation (principal)

== ENCOUNTER 2021-07-07 12:56 | Outpatient (CLI) | payer MEDICARE, MEDICAID | END 2021-07-07 23:59 | disposition critical access hospital (66) | LOC: EMS 12:56 | DX: R05.9 Cough, unspecified (principal); R06.09 Other forms of dyspnea | CPT/HCPCS: A0425; A0429 ==

== ENCOUNTER 2021-07-07 13:32 | Emergency (ER) | payer MEDICARE, MEDICAID ==
--- NOTE | 2021-07-07 13:39 | ED Physician Documentation ---
PD HPI DYSPNEA - Stated complaint Stated Complaint: SOA - History obtained from History obtained from: Patient - Additional information Additional information: 61-year-old woman with history of lung cancer status post lobectomy in remission, stage I, and COPD who continues to smoke presents with shortness of breath. Its been going on for a week with thick mucus, sometimes blood- streaked. She was seen in the clinic a week ago and reportedly Covid testing was done and negative. She was on steroids for 5 days which were helpful. Now worse again over the last day with increased dyspnea. She denies chest pain except for some rib pain with coughing. No pedal edema or calf pain except for chronic swelling of the left ankle which has been going on for a year or so. Review of Systems Ten Systems: 10 systems reviewed and negative Constitutional: reports: Fatigue. denies: Fever, Chills Cardiac: denies: Chest pain / pressure, Palpitations Respiratory: reports: Dyspnea, Cough PD PAST MEDICAL HISTORY - Past Medical History Cardiovascular: None Respiratory: COPD, Pneumonia, Other Endocrine/Autoimmune: None GI: None WIPER BLENDER: None : None HEENT: None Psych: None Musculoskeletal: None Derm: None - Past Surgical History Past Surgical History: Yes General: Cholecystectomy Cardiovascular: Lobectomy - Present Medications Home Medications: Ambulatory Orders Medication Instructions Recorded Confirmed Ipratropium/Albuterol Inhaler 1 puffs INH QID PRN 07/16/13 03/17/19 [Combivent Inhaler] Omeprazole 20 mg PO DAILY 09/11/16 03/17/19 Gabapentin 600 mg PO BID 09/10/17 03/17/19 Cyclobenzaprine [Flexeril] 10 mg PO TID PRN #20 tablet 11/07/18 03/17/19 Ipratropium [Atrovent] 0.5 mg INH Q6H #30 neb 11/07/18 03/17/19 Albuterol Sulf [Ventolin Hfa 2 puffs Q4H 02/04/20 02/04/20 Inhaler] Ipratropium/Albuterol [Combivent 2 puffs Q4H 02/04/20 02/04/20 Respimat] Nitroglycerin 0.4 mg SL PRN 02/04/20 02/04/20 Acetaminophen [Tylenol] 325 mg PO BID PRN 07/07/21 07/07/21 Doxycycline Hyclate 100 mg PO BID #14 07/07/21 guaiFENesin/CODEINE [Robitussin AC] 5 - 10 ml PO Q6H PRN #120 ml 07/07/21 predniSONE [Deltasone] 20 mg PO [id number] #21 tab 07/07/21 predniSONE [Prednisone] 60 mg PO DAILY 07/07/21 - Allergies Allergies/Adverse Reactions: Allergies Allergy/AdvReac Type Severity Reaction Status Date / Time No Known Drug Allergies Allergy Verified 03/15/20 11:28 - Social History Does the pt smoke?: Yes Smoking Status: Current every day smoker Does the pt drink ETOH?: No Does the pt have substance abuse?: Yes - Family History Family history: reports: Non contributory - Immunizations Immunizations are current?: Yes - POLST Patient has POLST: No PD ED PE NORMAL - Vitals Vital signs reviewed: Yes - General General: Alert and oriented X 3, No acute distress - HEENT HEENT: PERRL, EOMI - Neck Neck: Supple, no meningeal sign, No bony TTP - Cardiac Cardiac: Other (Mild tachycardia without murmur, regular) - Respiratory Respiratory: Other (Quite wheezy throughout, both inspiratory and expiratory with prolonged STEFANIE ratio and rhonchi at the bases, mildly labored breathing) - Back Back: No CVA TTP, No spinal TTP - Derm Derm: Normal color, Warm and dry - Extremities Extremities: Other (trace L ankle edema, NT) - Neuro Neuro: Alert and oriented X 3, Normal speech Results - Vitals Vitals: Vital Signs - 24 hr 07/07/21 07/07/21 07/07/21 13:35 13:50 14:08 Temperature 37.1 C Heart Rate 95 95 96 Respiratory 20 16 20 Rate Blood Pressure 145/124 H O2 Saturation 94 Oxygen O2 Source Room air - Labs Labs: Laboratory Tests 07/07/21 07/07/21 07/07/21 13:48 13:48 13:48 WBC 9.9 RBC 4.37 Hgb 14.3 Hct 42.9 MCV 98.2 MCH 32.7 H MCHC 33.3 RDW 12.8 Plt Count 201 MPV 9.0 Neut # (Auto) 4.9 Lymph # (Auto) 4.1 H [place] # (Auto) 0.6 Eos # (Auto) 0.1 Baso # (Auto) 0.1 Absolute Nucleated RBC 0.00 Nucleated RBC % 0.0 D-Dimer < 200.0 L Sodium 133 L Potassium 3.7 Chloride 95 L Carbon Dioxide 28 Anion Gap 10.0 BUN 12 Creatinine 0.5 Estimated GFR (MDRD) 125 Glucose 238 H Calcium 8.9 - Rads (name of study) 1v cxr Radiology: EMP read contemporaneously (NAD) PD MEDICAL DECISION MAKING - ED course ED course: 61-year-old woman presents with COPD exacerbation. She appears well but lungs are quite wheezy. Had stepwise improvement with 3 nebs here and then was walked on a pulse oximeter with saturations no less than 92%. She requested discharge. Departure - Departure Disposition: Home, Self Care Clinical Impression: COPD exacerbation Condition: Good Record reviewed to determine appropriate education?: Yes Instructions: ED COPD Flare, ED Smoking Cessation Prescriptions: predniSONE [Deltasone] 20 mg PO [id number] #21 tab Doxycycline Hyclate 100 mg PO BID #14 guaiFENesin/CODEINE [Robitussin AC] 5 - 10 ml PO Q6H PRN #120 ml PRN Reason: Cough Comments: Prescription sent electronically to [facility] in [place]. Call your doctor to arrange a follow-up appointment, make the next available appointment. In the interim, return anytime if worse or if new symptoms develop.
[2021-07-07] MEDS ORDERED: methylPREDNISolone SUCCINATE 125 MG/2 ML VIAL IVP STA (13:40)
[2021-07-07] MEDS ORDERED: IPRATROPIUM/ALBUTEROL 3 ML NEB INH STA (13:40)
[2021-07-07 13:58] LABS: BASOPHILS # (AUTO) 0.1 10^3/uL (0.0-0.1); BASOPHILS % (AUTO) 0.6 %; EOSINOPHILS # (AUTO) 0.1 10^3/uL (0.0-0.7); HCT - HEMATOCRIT 42.9 % (37.0-47.0); HGB - HEMOGLOBIN 14.3 g/dL (12.0-16.0); LYMPHOCYTES # (AUTO) 4.1 10^3/uL (1.5-3.5); LYMPHOCYTES % (AUTO) 41.5 %; MEAN CORPUSCULAR HEMOGLOBIN 32.7 pg (27.0-31.0); MEAN CORPUSCULAR HGB CONC 33.3 g/dL (32.0-36.0); MEAN CORPUSCULAR VOLUME 98.2 fL (81.0-99.0); MONOCYTES # (AUTO) 0.6 10^3/uL (0.0-1.0); NEUTROPHILS # (AUTO) 4.9 10^3/uL (1.5-6.6); NEUTROPHILS % (AUTO) 49.5 %; PLT - PLATELET COUNT 201 10^3/uL (130-450); RED BLOOD COUNT 4.37 10^6/uL (4.20-5.40); RED CELL DISTRIBUTION WIDTH 12.8 % (12.0-15.0); WHITE BLOOD COUNT 9.9 x10^3/uL (4.8-10.8)
[2021-07-07] MEDS ORDERED: LEVALBUTEROL 1.25 MG/3 ML NEB INH STA (14:03)
[2021-07-07 14:06] LABS: CALCIUM 8.9 mg/dL (8.5-10.3); CREATININE 0.5 mg/dL (0.4-1.0); POTASSIUM 3.7 mmol/L (3.5-5.0)
--- NOTE | 2021-07-07 14:08 | XRAY Report ---
PROCEDURE: Chest 1 View X-Ray INDICATIONS: cough TECHNIQUE: One view of the chest was acquired. COMPARISON: CXR 06/30/2021. CT chest 03/28/2021. FINDINGS: Surgical changes and devices: None. Lungs and pleura: No pleural effusions or pneumothorax. Lungs appear clear. Mediastinum: Mediastinal contours appear unchanged. Heart size is normal. Bones and chest wall: No suspicious bony lesions. Overlying soft tissues appear unremarkable. IMPRESSION: No acute cardiopulmonary abnormality. Reviewed by: Brooks Finley MD on 07/07/2021 2:07 PM PST Approved by: Brooks Finley MD on 07/07/2021 2:07 PM [facility] Station ID: [id number]
[2021-07-07 15:26] VITALS: BP 117/76
== END 2021-07-07 15:24 | disposition home or self-care (01) ==
LOC: EDUNIT# → ED 13:32
DX: J44.1 Chronic obstructive pulmonary disease with (acute) exacerbation (principal); F17.200 Nicotine dependence, unspecified, uncomplicated; Z87.01 Personal history of pneumonia (recurrent); Z85.118 Personal history of other malignant neoplasm of bronchus and lung; Z90.2 Acquired absence of lung [part of]; Z79.51 Long term (current) use of inhaled steroids; Z79.899 Other long term (current) drug therapy
CPT/HCPCS: 36415; 80048; 85025; 85379; 94640; 96374; 99284

== ENCOUNTER 2022-06-13 08:00 | Outpatient (CLI) | payer MEDICARE, MEDICAID ==
--- NOTE | 2022-06-13 14:05 | XRAY Report ---
PROCEDURE: Chest 2 View X-Ray INDICATIONS: SHORTNESS OF BREATH TECHNIQUE: 2 view(s) of the chest. COMPARISON: CT chest 03/27/2022, chest radiographs 06/30/2021. FINDINGS: Surgical changes and devices: None. Lungs and pleura: No definite pleural effusions or pneumothorax. No suspicious focal airspace opacit y identified. Mediastinum: Mediastinal contours are normal. Heart size is normal. Bones and chest wall: No suspicious bony abnormalities. Soft tissues appear unremarkable. IMPRESSION: No acute cardiopulmonary abnormality. Reviewed by: Dontae Castorena MD on 06/13/2022 2:03 PM PDT Approved by: Dontae Castorena MD on 06/13/2022 2:03 PM PDT Station ID: [id number]
== END 2022-06-13 23:59 | disposition home or self-care (01) ==
LOC: DI.S 08:00
PROVIDERS: ATTEND Physician Assistant Medical
DX: R06.02 Shortness of breath (principal); J44.1 Chronic obstructive pulmonary disease with (acute) exacerbation

== ENCOUNTER 2023-08-06 08:00 | Outpatient (CLI) | payer MEDICARE, MEDICAID ==
--- NOTE | 2023-08-06 12:52 | XRAY Report ---
PROCEDURE: Chest 2 View X-Ray INDICATIONS: HISTORY OF LUNG CANCER TECHNIQUE: 2 views of the chest were acquired. COMPARISON: Chest x-ray 06/13/2022. FINDINGS: Surgical changes and devices: None. Lungs and pleura: No pleural effusions or pneumothorax. Lungs are clear. Mediastinum: Mediastinal contours appear normal. Heart size is normal. Bones and chest wall: No suspicious bony lesions. Overlying soft tissues appear unremarkable. IMPRESSION: No acute cardiopulmonary process. Reviewed by: Migel Beasley MD on 08/06/2023 12:51 PM PST Approved by: Migel Beasley MD on 08/06/2023 12:51 PM PST Station ID: [id number]
--- NOTE | 2023-08-06 16:57 | XRAY Report ---
PROCEDURE: Shoulder 3 View LT INDICATIONS: BICEPS TENDINITIS OF LEFT SHOULDER TECHNIQUE: 3 views of the shoulder were acquired. COMPARISON: None. FINDINGS: Bones: No fractures or dislocations. No suspicious bony lesions. Mild acromioclavicular joint degen eration. Visualized ribs appear intact. Soft tissues: No suspicious soft tissue calcifications. The visualized lungs are within normal limi ts. IMPRESSION: 1. Mild degenerative joint disease. Reviewed by: Rocky Murphy MD on 08/06/2023 4:55 PM PST Approved by: Rocky Murphy MD on 08/06/2023 4:55 PM PST Station ID: [id number]
== END 2023-08-06 23:59 | disposition home or self-care (01) ==
LOC: DI.S 08:00
PROVIDERS: ATTEND Emergency Medicine
DX: M75.22 Bicipital tendinitis, left shoulder (principal); M19.012 Primary osteoarthritis, left shoulder; Z85.118 Personal history of other malignant neoplasm of bronchus and lung

== ENCOUNTER 2023-09-09 10:29 | Outpatient (CLI) | payer MEDICARE, MEDICAID ==
[2023-09-09 11:13] LABS: CREATININE 0.6 mg/dL (0.6-1.3)
[2023-09-09] MEDS ORDERED: iohexoL-300 100 ML VIAL ONE (11:34)
[2023-09-09] MEDS: DIATRIZOATE MEGLU/DIATRIZO SOD 30 ML BOTTLE PO ONE (12:31)
[2023-09-09] MEDS: iohexoL-300 100 ML VIAL IVP ONE (12:32)
--- NOTE | 2023-09-09 15:22 | CT Report ---
PROCEDURE: Chest W INDICATIONS: LEFT SHOULDER PAIN. Prior lung cancer. CONTRAST: OMNI 300 100ML TECHNIQUE: After the administration of intravenous contrast, a CT scan of the chest was performed. Images were recorded and evaluated at appropriate window settings. Reformats: axial MIP of the chest, coronal and sagittal. For radiation dose reduction, the following was used: automated exposure control, adjustme nt of mA and/or kV according to patient size. COMPARISON: CT 03/28/2021 FINDINGS: Image quality: Excellent. Lungs and pleura: No consolidation. No pleural effusions. No pneumothorax. Left upper lobectomy. St able atypical right upper lobe cyst with a mildly thickened, nodular wall; nodularity measures 6 mm a t this time, previously 2 to 3 mm (series 4, image 29). Moderate centrilobular emphysema. Calcified g ranuloma. Mediastinum: Heart size is normal. No pericardial effusion. No large vessel abnormality. No mediastin al adenopathy by size criteria. Moderate coronary calcifications for age. Chest wall and lower neck: Thyroid is unremarkable. No axillary or supraclavicular adenopathy by size . Bones: No aggressive osseous abnormality. No significant degenerative changes of the left glenohumera l joint. Osteophytosis of the acromial clavicular joints. Upper Abdomen: Unremarkable. IMPRESSION: Left upper lobectomy, without evidence of local recurrence or tee disease. Similar atypical pulmonary cyst of the right upper lobe, with a growing nodular component. Moderate s uspicion for a second primary malignancy. Solid component is too small to the evaluated by PET/CT. Sh ort-term follow-up (3-6 months) should be considered. Mild acromioclavicular osteoarthritis. No significant glenohumeral osteophytes. No aggressive osseous abnormality or large shoulder effusion. Reviewed by: Darrick Baeza MD on 09/09/2023 3:21 PM PST Approved by: Darrick Baeza MD on 09/09/2023 3:21 PM PST Station ID: [id number]
== END 2023-09-09 10:30 | disposition home or self-care (01) ==
LOC: LAB 10:29
PROVIDERS: ATTEND Emergency Medicine
DX: M25.712 Osteophyte, left shoulder (principal); M25.711 Osteophyte, right shoulder; M19.011 Primary osteoarthritis, right shoulder; J98.4 Other disorders of lung; Z90.2 Acquired absence of lung [part of]
CPT/HCPCS: 36415; 71260; 82565; Q9967

== ENCOUNTER 2023-09-22 12:37 | Outpatient (CLI) | payer MEDICARE, MEDICAID ==
--- NOTE | 2023-09-22 14:12 | Ultrasound Report ---
PROCEDURE: Abdomen Complete INDICATIONS: BARRETTES ESOPHAGUS,ABD PAIN, HIST OF LUNG CA TECHNIQUE: Real-time scanning was performed of the abdominal and retroperitoneal organs, with image documentatio n. COMPARISON: CT abdomen/pelvis 06/14/2016 FINDINGS: Liver: Liver is normal in size and diffusely increased in echogenicity with posterior acoustic atten uation. No focal hepatic mass. Hepatopetal flow seen in the main portal vein. Gallbladder: Status post cholecystectomy. Biliary ducts: Intrahepatic bile ducts are non-dilated. Extrahepatic bile duct caliber measures 8 m m. Normal is 6-7 mm or less in diameter, or 10 mm or less post-cholecystectomy. Pancreas: Visualized portions of the pancreas are sonographically normal. Spleen: Spleen is normal in size and homogeneous in echotexture. Kidneys: Kidneys are normal in size and echotexture. Right kidney measures 9.9 cm long; left kidney measures 10.1 cm long. No hydronephrosis or nephrolithiasis. No solid masses. No complex renal cys tic lesions which require follow-up. Aorta: Visualized aorta is normal in caliber at less than 3 cm. Iliacs: Not well visualized due to overlying bowel gas. IVC: Intrahepatic inferior vena cava is patent. Miscellaneous: No free abdominal fluid. IMPRESSION: Diffusely increased hepatic echogenicity is nonspecific, but most commonly encountered in the setting of hepatic steatosis. However, other causes of hepatocellular disease are not excluded. Recommend cl inical correlation. Reviewed by: Dontae Fairchild MD on 09/22/2023 2:10 PM PST Approved by: Dontae Fairchild MD on 09/22/2023 2:10 PM PST Station ID: [id number]
== END 2023-09-22 12:38 | disposition home or self-care (01) ==
LOC: DI 12:37
PROVIDERS: ATTEND Registered Nurse
DX: R10.13 Epigastric pain (principal); R63.4 Abnormal weight loss

== ENCOUNTER 2023-12-16 12:22 | Outpatient (CLI) | payer MEDICARE, MEDICAID ==
[2023-12-16] MEDS ORDERED: iohexoL-300 100 ML VIAL ONE (12:46)
[2023-12-16 12:58] LABS: CREATININE 0.8 mg/dL (0.6-1.3)
[2023-12-16] MEDS: iohexoL-300 100 ML VIAL IVP ONE (14:08)
--- NOTE | 2023-12-16 16:09 | CT Report ---
PROCEDURE: Chest W INDICATIONS: LUNG CYST CONTRAST: Omnipaque 300 100ml TECHNIQUE: After the administration of intravenous contrast, a CT scan of the chest was performed. Images were recorded and evaluated at appropriate window settings. Reformats: axial MIP of the chest, coronal and sagittal. For radiation dose reduction, the following was used: automated exposure control, adjustme nt of mA and/or kV according to patient size. COMPARISON: 09/09/2023, 03/26/2023, 03/27/2022 FINDINGS: Image quality: Diagnostic Lungs and pleura:Right upper lobe nodular region surrounded by cystic changes has slowly increased in size over multiple prior images, in aggregate measuring 10 mm, previously 9 mm when measured using s imilar long axis. This was less apparent dating back to 2021, with increased solid component. Small c ystic and emphysematous changes are present. No dense airspace disease or pleural effusions. Other sm all nodules and granulomas are unchanged. Left upper lobectomy. Mediastinum, heart, and esophagus: Normal heart size. No pathologic lymph nodes by size criteria. Chest wall and thyroid: Unremarkable Upper abdomen: No gross abnormality on these limited views. Bones: No acute or suspicious osseous finding. There are degenerative changes. IMPRESSION: Minimally increased prominence of the right upper pulmonary lobe nodular region over multiple years , suspicious for an indolent malignancy. Reviewed by: Shashank Fragoso MD on 12/16/2023 4:08 PM PDT Approved by: Shashank Fragoso MD on 12/16/2023 4:08 PM PDT Station ID: [id number]
== END 2023-12-16 12:23 | disposition home or self-care (01) ==
LOC: LAB 12:22
PROVIDERS: ATTEND Registered Nurse
DX: R91.8 Other nonspecific abnormal finding of lung field (principal)
CPT/HCPCS: 36415; 82565

== ENCOUNTER 2024-01-08 10:46 | Outpatient (CLI) | payer MEDICARE, MEDICAID ==
[2024-01-08 15:40] LABS: BASOPHILS # (AUTO) 0.1 10^3/uL (0.0-0.1); BASOPHILS % (AUTO) 0.5 %; EOSINOPHILS # (AUTO) 0.1 10^3/uL (0.0-0.7); EOSINOPHILS % (AUTO) 0.9 %; HCT - HEMATOCRIT 47.5 % (37.0-47.0); HGB - HEMOGLOBIN 15.8 g/dL (12.0-16.0); LYMPHOCYTES # (AUTO) 3.7 10^3/uL (1.5-3.5); LYMPHOCYTES % (AUTO) 35.8 %; MEAN CORPUSCULAR HEMOGLOBIN 32.6 pg (27.0-31.0); MEAN CORPUSCULAR HGB CONC 33.3 g/dL (32.0-36.0); MEAN CORPUSCULAR VOLUME 97.9 fL (81.0-99.0); MEAN PLATELET VOLUME 10.3 fL (7.9-10.8); MONOCYTES # (AUTO) 0.7 10^3/uL (0.0-1.0); MONOCYTES % (AUTO) 6.3 %; NEUTROPHILS # (AUTO) 5.9 10^3/uL (1.5-6.6); PLT - PLATELET COUNT 257 10^3/uL (130-450); RED BLOOD COUNT 4.85 10^6/uL (4.20-5.40); RED CELL DISTRIBUTION WIDTH 12.6 % (12.0-15.0); WHITE BLOOD COUNT 10.5 x10^3/uL (4.8-10.8)
[2024-01-08 15:57] LABS: ALBUMIN 4.3 g/dL (3.2-5.5); ALBUMIN/GLOBULIN RATIO 1.7 (1.0-2.2); ALKALINE PHOSPHATASE 68 IU/L (42-121); ALT ALANINE AMINOTRANSFERASE 6 IU/L (10-60); AST ASPARTATE AMINOTRANSFERASE 7 IU/L (10-42); BILIRUBIN,TOTAL 0.7 mg/dL (0.2-1.0); BUN - BLOOD UREA NITROGEN 10 mg/dL (6-20); CALCIUM 9.5 mg/dL (8.5-10.3); CARBON DIOXIDE - CO2 23 mmol/L (21-32); CHLORIDE 99 mmol/L (101-111); CHOL/HDL RATIO 6.6 (<4.4); CHOLESTEROL 304 mg/dL; CREATININE 0.6 mg/dL (0.6-1.3); GFR - MDRD 101 (>89); GLUCOSE 381 mg/dL (74-104); HDL CHOLESTEROL 46 mg/dL; POTASSIUM 3.3 mmol/L (3.5-4.5); SODIUM 135 mmol/L (135-145); TOTAL PROTEIN 6.9 g/dL (6.4-8.9); TRIGLYCERIDES 479 mg/dL (48-352)
[2024-01-08 16:13] LABS: THYROID STIMULATING HORMONE 0.84 uIU/mL (0.34-5.60)
[2024-01-08 17:03] LABS: LDL CHOLESTEROL,DIRECT 198 mg/dL (75-193); LDLD/HDL RATIO 4.3 (<4.4)
[2024-01-08 20:41] LABS: ESTIMATED AVERAGE GLUCOSE 369 mg/dL (70-100); HEMOGLOBIN A1c% 14.5 % (4.27-6.07)
== END 2024-01-08 10:47 | disposition home or self-care (01) ==
LOC: LAB.S 10:46
PROVIDERS: ATTEND Registered Nurse
DX: R73.9 Hyperglycemia, unspecified (principal); Z13.220 Encounter for screening for lipoid disorders; Z13.29 Encounter for screening for other suspected endocrine disorder; Z13.0 Encounter for screening for diseases of the blood and blood-forming organs and certain disorders involving the immune mechanism; Z13.228 Encounter for screening for other metabolic disorders; R63.4 Abnormal weight loss
CPT/HCPCS: 36415; 80053; 80061; 82043; 82570; 83036; 83721; 84443; 85025

== ENCOUNTER 2024-02-03 09:48 | Outpatient (CLI) | payer MEDICARE, MEDICAID ==
[2024-02-03 14:51] LABS: CALCIUM 9.6 mg/dL (8.5-10.3); CREATININE 0.5 mg/dL (0.6-1.3); POTASSIUM 3.9 mmol/L (3.5-4.5)
== END 2024-02-03 09:49 | disposition home or self-care (01) ==
LOC: LAB.S 09:48
PROVIDERS: ATTEND Registered Nurse
DX: E11.9 Type 2 diabetes mellitus without complications (principal)
CPT/HCPCS: 36415; 80048

== ENCOUNTER 2024-03-22 12:04 | Emergency (ER) | payer MEDICARE, MEDICAID ==
--- NOTE | 2024-03-22 12:56 | XRAY Report ---
PROCEDURE: Chest 2V INDICATIONS: cough TECHNIQUE: 2 views of the chest were obtained. COMPARISON: 08/06/2023 FINDINGS: Surgical changes and devices: None. Lungs and pleura: Left basilar atelectasis and or infiltrate obscures the costophrenic angle. Remain bruno the lungs and pleural spaces are clear Mediastinum: Mediastinal contours appear normal. Heart size is normal. Bones and chest wall: No suspicious bony lesions. Overlying soft tissues appear unremarkable. IMPRESSION: Left basilar atelectasis and or infiltrate Reviewed by: Valentin Mathew MD on 03/22/2024 11:55 AM BILL Approved by: Valentin Mathew MD on 03/22/2024 11:55 AM AKDT Station ID: [id number]
--- NOTE | 2024-03-22 13:13 | ED Physician Documentation ---
PD HPI DYSPNEA - Stated complaint Stated Complaint: C+ - Chief complaint Chief Complaint: Resp - History obtained from History obtained from: Patient - Additional information Additional information: This is a 63-year-old female who has a history of lung cancer, COPD, and states she was recently positive for COVID about 2 weeks ago. Was she had COVID, she had a cough, fatigue and decreased appetite but she states the symptoms have not improved over the course of the last 2 weeks. She also has Increased shortness of breath. She is not on any oxygen at home at this time, and has some chronic shortness of air but worsening over the last few days. She does have inhalers at home which she has been using. She does not feel like she has had any increase sputum production, she denies any known fever or chills, no chest pain, she has not had any abdominal pain, nausea, vomiting, diarrhea, no dysuria urgency or frequency. She is not currently on any treatment for her lung cancer. She states in the past she had a left lobectomy but now she has an area that they are monitoring in the right lung. Review of Systems Constitutional: reports: Fatigue. denies: Fever, Chills, Myalgias, Weight Loss, Sweats Eyes: reports: Reviewed and negative Ears: reports: Reviewed and negative Nose: reports: Reviewed and negative Throat: reports: Reviewed and negative Cardiac: reports: Reviewed and negative Respiratory: reports: Dyspnea, Cough, Wheezing GI: reports: Reviewed and negative : reports: Reviewed and negative Skin: reports: Reviewed and negative Musculoskeletal: reports: Reviewed and negative Neurologic: reports: Reviewed and negative PD PAST MEDICAL HISTORY - Past Medical History Past Medical History: Yes Cardiovascular: Pulmonary embolism Respiratory: COPD, Pneumonia, Other Neuro: None Endocrine/Autoimmune: Type 2 diabetes GI: None 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 : None HEENT: None Psych: None Musculoskeletal: None Derm: None Other Past Medical History: lung cancer with left lobectomy - Past Surgical History Past Surgical History: Yes General: Cholecystectomy Cardiovascular: Lobectomy - Present Medications Home Medications: Ambulatory Orders Medication Instructions Recorded Confirmed Ipratropium/Albuterol Inhaler 1 puffs INH QID PRN 07/16/13 03/22/24 [Combivent Inhaler] Omeprazole 40 mg PO DAILY 09/11/16 03/22/24 Gabapentin 600 mg PO BID 09/10/17 03/22/24 Cyclobenzaprine [Flexeril] 10 mg PO TID PRN #20 tablet 11/07/18 03/22/24 Ipratropium [Atrovent] 0.5 mg INH Q6H #30 neb 11/07/18 03/03/24 Albuterol Sulf [Ventolin Hfa 2 puffs Q4H 02/04/20 03/22/24 Inhaler] Ipratropium/Albuterol [Combivent 2 puffs Q4H 02/04/20 03/22/24 Respimat] Nitroglycerin 0.4 mg SL Q5MIN PRN 02/04/20 03/22/24 Acetaminophen [Tylenol] 325 mg PO BID PRN 07/07/21 03/22/24 Doxycycline Hyclate 100 mg PO BID #14 tab 07/07/21 03/22/24 Duloxetine HCl [Cymbalta] 60 mg PO DAILY 07/07/21 03/22/24 guaiFENesin/CODEINE [Robitussin AC] 5 - 10 ml PO Q6H PRN #120 ml 07/07/21 03/03/24 hydrOXYzine HCL [Hydroxyzine HCl] 25 mg PO HS 07/07/21 03/22/24 predniSONE [Deltasone] 20 mg PO [id number] #21 tab 07/07/21 03/22/24 predniSONE [Prednisone] 60 mg PO DAILY 07/07/21 03/22/24 Amitriptyline [Elavil] 1 tab PO DAILY 03/22/24 03/22/24 Amox/Clav 875/125 [Augmentin] 1 each PO Q12H #20 tablet 03/22/24 Atorvastatin Calcium [Lipitor] 1 tab PO DAILY 03/22/24 03/22/24 Azithromycin [Zithromax] 0 mg PO DAILY #6 tablet 03/22/24 Insulin NPH Human Isophane 10 unit SUBQ DAILY 03/22/24 03/22/24 [Humulin N Kwikpen] icosapent ethyL [Vascepa] 1 cap PO DAILY 03/22/24 03/22/24 metFORMIN [Glucophage] 2 tab PO BID 03/22/24 03/22/24 predniSONE [Deltasone] 40 mg PO DAILY 5 Days #10 tablet 03/22/24 traZODone [Desyrel] 1 tab PO DAILY 03/22/24 03/22/24 - Allergies Allergies/Adverse Reactions: Allergies Allergy/AdvReac Type Severity Reaction Status Date / Time No Known Drug Allergies Allergy Verified 03/22/24 12:10 - Social History Does the pt smoke?: Yes Smoking Status: Current every day smoker Does the pt drink ETOH?: No Does the pt have substance abuse?: Yes Substance Use and Type: Marijuana - Immunizations Immunizations are current?: No Immunizations: Other immun not current - POLST Patient has POLST: No PD ED PE NORMAL - Vitals Vital signs reviewed: Yes - General General: Alert and oriented X 3, No acute distress, Well developed/nourished - HEENT HEENT: Atraumatic, Moist mucous membranes - Neck Neck: Supple, no meningeal sign, No JVD - Cardiac Cardiac: RRR, No murmur - Respiratory Respiratory: No respiratory distress, Other (Bilateral diffuse expiratory wheezes, no crackles. Non labored) - Abdomen Abdomen: Normal bowel sounds, Soft, Non tender, Non distended - Back Back: No CVA TTP, No spinal TTP - Derm Derm: Normal color, Warm and dry, No rash - Neuro Neuro: Alert and oriented X 3 Eye Opening: Spontaneous Motor: Obeys Commands Verbal: Oriented GCS Score: 15 - Psych Psych: Normal mood, Normal affect Results - Vitals Vitals: Vital Signs - 24 hr 03/22/24 03/22/24 03/22/24 12:10 13:25 13:54 Temperature 36.4 C L Heart Rate 80 85 86 Respiratory 20 18 20 Rate Blood Pressure 118/59 L 142/87 H O2 Saturation 94 95 Oxygen O2 Source Room air - Rads (name of study) No standard instances Relevant Findings:: Final report received PD Medical Decision Making - ED course Complexity details: reviewed old records, reviewed results, re-evaluated patient, considered differential, d/w patient ED course: This is a 63-year-old female who has a past medication assist above who presented but takes after testing positive for COVID with ongoing symptoms inc luding cough, shortness of air, fatigue, decreased appetite. The patient is well-appearing here on physical exam, toxic afebrile and in no acute distress. On exam she does have diffuse expiratory wheezes nephritis she was given a DuoNeb with improvement in her symptoms. She has been oxygenating well on room air. We obtain x-ray which shows a left lower lobe infiltrate. I discussed with patient that he may be having prolonged COVID symptoms but there is also signs of possible pneumonia on her x-ray today and she is exhibiting signs of exacerbation of her COPD. I recommend that we treat with antibiotics and steroids and she should continue her inhalers at home as prescribed. I discussed return precautions if new or worsening symptoms and patient discharged home in stable condition. Departure - Departure Disposition: Home, Self Care Clinical Impression: COPD with exacerbation CAP (community acquired pneumonia) Qualifiers: Laterality: left Lung location: lower lobe of lung Qualified Code(s): J18.9 - Pneumonia, unspecified organism Condition: Good Instructions: Pneumonia Dc Prescriptions: Amox/Clav 875/125 [Augmentin] 1 each PO Q12H #20 tablet predniSONE [Deltasone] 40 mg PO DAILY 5 Days #10 tablet Azithromycin [Zithromax] 0 mg PO DAILY #6 tablet Comments: Your xray shows you might have a pneumonia in the left lower lung. You also have signs of exacerbation of your emphysema/COPD. Please take both antibiotics as prescribed as well as the course of antibiotics. I have also prescribed a course of steroids for your COPD. If you feel like you are worsening including if you develop a fever, chest pain, or increasing shortness of breath, please return to the ER. Otherwise I would like you to follow-up with your primary doctor within the next week to ensure that you are improving. Your medications were sent to [facility] in [place]. Forms: PCP List Discharge Date/Time: 03/22/24 13:54
[2024-03-22] MEDS: IPRATROPIUM/ALBUTEROL 3 ML NEB INH STA (13:25)
[2024-03-22 14:00] VITALS: BP 142/87; O2SAT 95
== END 2024-03-22 13:54 | disposition home or self-care (01) ==
LOC: ED 12:04
DX: J18.9 Pneumonia, unspecified organism (principal); J44.1 Chronic obstructive pulmonary disease with (acute) exacerbation; Z85.118 Personal history of other malignant neoplasm of bronchus and lung; E11.9 Type 2 diabetes mellitus without complications; Z86.711 Personal history of pulmonary embolism; Z79.01 Long term (current) use of anticoagulants; Z79.84 Long term (current) use of oral hypoglycemic drugs; Z79.4 Long term (current) use of insulin; F17.200 Nicotine dependence, unspecified, uncomplicated
CPT/HCPCS: 94640; 94664; 99283; 99284